=== PATIENT | male | born 1990 | race Caucasian/White ===

== ENCOUNTER 2017-03-14 16:37 | Emergency (ER) | payer BC, OTHER ==
[2017-03-14] MEDS ORDERED: DOXYcycline CAP(*) 100 MG PO ONE (18:08)
--- NOTE | 2017-03-14 18:14 | UC ---
Skin Complaint HPI - HPI Summary HPI Summary: tick found on his back this mrsbaa. It was brushed off easily. - History of Current Complaint Chief Complaint: UCSkin Time Seen by Provider: 03/14/17 18:05 Stated Complaint: TICK Hx Obtained From: Patient Onset/Duration: Gradual Onset, Resolved Skin Exposure Onset/Duration: Days Ago Timing: Constant Onset Severity: Mild Current Severity: None Location: Discrete Character: Redness, Raised Aggravating Factor(s): Nothing Alleviating Factor(s): Nothing Associated Signs & Symptoms: Positive: Negative Review of Systems Skin: Rash - small redness All Other Systems Reviewed And Are Negative: Yes PMH/Surg Hx/FS Hx/Imm Hx Previously Healthy: Yes - Family History Known Family History: Positive: Other - no family history related illness. - Social History Occupation: Employed Full-time Physical Exam Triage Information Reviewed: Yes Appearance: Well-Appearing, No Pain Distress, Well-Nourished Vital Signs Reviewed: Yes Eyes: Positive: Conjunctiva Clear ENT: Positive: Normal ENT inspection Neck: Positive: Supple, Nontender, No Lymphadenopathy Respiratory: Positive: No respiratory distress, No accessory muscle use Cardiovascular: Positive: RRR Abdomen Description: Negative: Distended, Guarding Musculoskeletal: Positive: No Edema Neurological: Positive: Alert, Muscle Tone Normal, Fatigued Skin Exam: Normal Skin: Positive: rashes Course/Dx - Diagnoses Provider Diagnoses: tick bite Discharge - Discharge Plan Condition: Good Disposition: HOME Patient Education Materials: Tick Bite (ED) Referrals: Felice Torres MD [Primary Care Provider] - If Needed Additional Instructions: return for any signs of lymes disease which is a flu like illness or a "bulls eye" rash with the next few weeks.
[2017-03-14 18:21] VITALS: BP 171/83
== END 2017-03-14 18:35 | disposition home or self-care (01) ==
LOC: UCCORT 16:37
DX: T14.8XXA Other injury of unspecified body region, initial encounter (principal); W57.XXXA Bitten or stung by nonvenomous insect and other nonvenomous arthropods, initial encounter; Y92.9 Unspecified place or not applicable
CPT/HCPCS: 99202; A9270-GY; G0463

== ENCOUNTER 2019-05-05 08:39 | Emergency (ER) | payer BC ==
[2019-05-05 08:50] VITALS: BP 177/90
--- NOTE | 2019-05-05 09:09 | UC ---
Throat Pain/Nasal Madhav HPI - HPI Summary HPI Summary: 29-year-old male who is had a sore throat for approximate 1 week. He was exposed to a friend's child last week who had diagnosed strep throat. - History of Current Complaint Chief Complaint: UCRespiratory Stated Complaint: ST Time Seen by Provider: 05/05/19 08:43 Hx Obtained From: Patient Onset/Duration: Gradual Onset Severity: Mild Pain Intensity: 3 Cough: None Associated Signs & Symptoms: Positive: Negative - Allergies/Home Medications Allergies/Adverse Reactions: Allergies Allergy/AdvReac Type Severity Reaction Status Date / Time No Known Allergies Allergy Verified 05/05/19 08:46 PMH/Surg Hx/FS Hx/Imm Hx Previously Healthy: Yes - Surgical History Surgical History: Yes Surgery Procedure, Year, and Place: [facility] - Family History Known Family History: Positive: Other - no family history related illness. - Social History Alcohol Use: Daily Alcohol Amount: 3-4 beers/DAY Substance Use Type: None Smoking Status (MU): Smoker, Current Status Unknown Type: Smokeless Tobacco Amount Used/How Often: DAILY - Immunization History Most Recent Influenza Vaccination: NOT YET 2017 Review of Systems All Other Systems Reviewed And Are Negative: Yes ENT: Positive: Sore Throat Is Patient Immunocompromised?: No Physical Exam Triage Information Reviewed: Yes Appearance: Well-Appearing, No Pain Distress, Well-Nourished Vital Signs: Initial Vital Signs Temp 99.2 F 05/05/19 08:46 Pulse 105 05/05/19 08:46 Resp 16 05/05/19 08:46 BP 177/90 05/05/19 08:46 Pulse Ox 99 05/05/19 08:46 Vital Signs Reviewed: Yes Eyes: Positive: Conjunctiva Clear ENT: Positive: Hearing grossly normal, Pharyngeal erythema, TMs normal, Tonsillar swelling, Tonsillar exudate, Uvula midline. Negative: Trismus, Muffled voice, Hoarse voice Neck: Positive: Supple, Nontender, No Lymphadenopathy Respiratory: Positive: Lungs clear, Normal breath sounds, No respiratory distress, No accessory muscle use Cardiovascular: Positive: RRR, No Murmur, Pulses Normal, Brisk Capillary Refill Abdomen Description: Positive: Nontender, No Organomegaly, Soft. Negative: CVA Tenderness (R), CVA Tenderness (L), Distended, Guarding, Splenomegaly Bowel Sounds: Positive: Present Musculoskeletal Exam: Normal Neurological Exam: Normal Psychological Exam: Normal Skin Exam: Normal Throat Pain/Nasal Course/Dx - Course Course Of Treatment: Patient is comfortable here. I am going to treated for tonsillitis with amoxicillin because of his strep exposure last week and the fact that he is symptomatic for the past week without improvement. - Differential Dx/Diagnosis Provider Diagnosis: Tonsillitis with exudate Discharge ED - Sign-Out/Discharge Documenting (check all that apply): Patient Departure All imaging exams completed and their final reports reviewed: No Studies - Discharge Plan Condition: Good Disposition: HOME Prescriptions: Amoxicillin PO (*) [Amoxicillin 875 MG (*)] 875 mg PO BID 10 Days #20 tab Patient Education Materials: Tonsillitis (ED) Referrals: Kelsey Meehan MD [Primary Care Provider] - Additional Instructions: Increase fluids, warm saltwater gargles, change toothbrush in 24 hours. Follow- up with her primary care provider if no improvement in 4 or 5 days. - Billing Disposition and Condition Condition: GOOD Disposition: Home
== END 2019-05-05 09:18 | disposition home or self-care (01) ==
LOC: UCCORT 08:39
DX: J03.90 Acute tonsillitis, unspecified (principal); F17.290 Nicotine dependence, other tobacco product, uncomplicated
CPT/HCPCS: 87651; 99212; G0463

== ENCOUNTER 2023-05-21 20:12 | Observation (INO) ==
[2023-05-21 21:17] LABS: ABS Lymphocytes 0.2 10^3/uL (1.0-4.8); ABS Monocytes 0.5 10^3/uL (0.0-1.1); ABS Neutrophils 4.9 10^3/uL (1.5-7.6); Eosinophil % 0.1 %; Hematocrit 44.1 % (38-53); Hemoglobin 15.5 g/dL (13.2-16.3); Lymphocyte % 3.9 %; Mean Corpuscular Hemoglobin 32.7 pg (27-33); Mean Corpuscular Hgb Conc 35.2 g/dL (31-36); Mean Corpuscular Volume 92.9 fL (80-97); Mean Platelet Volume 9.3 fL (7.5-11.2); Platelet Count 122 10^3/uL (150-450); Red Blood Count 4.75 10^6/uL (4.06-5.63); Red Cell Distribution Width 14.5 % (12-17); White Blood Count 5.6 10^3/uL (3.6-10.2)
[2023-05-21] MEDS ORDERED: levETIRAcetam IV 1,500 MG in NS 0.9% 100 ml BAG 100 ML IVPB ONE (21:17)
[2023-05-21] MEDS ORDERED: LORazepam 2 mg VIAL 1 ml IV PUSH ONE (21:17)
[2023-05-21] MEDS ORDERED: Lorazepam PYXIS KEY PRN (21:17)
[2023-05-21 21:29] LABS: INR 0.92 (0.83-1.13)
[2023-05-21] MEDS ORDERED: Thiamine 100 MG/ML 2 ml VIAL 100 MG, Folic Acid IV 1 MG, Multiple Vitamin IV ADULT 10 M... IV ONE (21:33)
[2023-05-21] MEDS ORDERED: Ondansetron 4 mg VIAL 2 MG/ML 2 ml VIAL IV ONE (21:33)
[2023-05-21 21:37] LABS: ALT 120 U/L (7-52); AST 239 U/L (13-39); Albumin 4.4 g/dL (3.2-5.2); Albumin/Globulin Ratio 1.5 (1-3); Alkaline Phosphatase 164 U/L (35-149); Anion Gap 14 mmol/L (2-16); Blood Urea Nitrogen 10 mg/dL (6-24); CO2 Carbon Dioxide 26 mmol/L (22-32); Calcium 9.5 mg/dL (8.6-10.3); Chloride 87 mmol/L (101-111); Creatinine, Serum 0.88 mg/dL (0.67-1.17); Globulin 2.9 g/dL (2-4); Glucose 170 mg/dL (70-100); Magnesium 2.2 mg/dL (1.9-2.7); Potassium 2.9 mmol/L (3.5-5.0); Sodium 127 mmol/L (135-145); Total Protein 7.3 g/dL (6.4-8.9); eGFR CKD-EPI 117.2 (>60)
[2023-05-21 21:52] LABS: Alcohol, S < 13 mg/dL (<13)
[2023-05-21] MEDS ORDERED: Potassium EFFERVES 25 meq TAB PO ONE (22:32)
[2023-05-21] MEDS ORDERED: Magnesium Sulfate 2 gm BAG 2 GM/50 ML BAG IVPB ONE (22:32)
[2023-05-21] MEDS ORDERED: Ondansetron 4 mg VIAL 2 MG/ML 2 ml VIAL IV PRN (23:12)
[2023-05-21 23:14] LABS: Amylase 67 U/L (29-103); Lipase 48 U/L (11.0-82.0)
[2023-05-22] MEDS: KCL 20 MEQ/100 ML IVPREMIX 20 MEQ/100 ML BAG IV SCH ×2 (00:33→04:00)
[2023-05-22 01:27] LABS: Urine Benzodiazepine Screen None Detected (None Detect); Urine Cannabinoids Screen None Detected (None Detect); Urine Opiates Screen None Detected (None Detect)
[2023-05-22 01:31] LABS: Urine Appearance Clear; Urine Bacteria Absent (Absent); Urine Bilirubin Negative (Negative); Urine Blood 2+ (Negative); Urine Color Yellow; Urine Glucose Negative (Negative); Urine Ketones Trace (Negative); Urine Nitrite Negative (Negative); Urine Protein 3+(>=500 mg/dL) (Negative); Urine Red Blood Cell Trace(0-2/hpf) (Absent); Urine Specific Gravity 1.009 (1.002-1.030); Urine Squamous Epithelial Cell Present (Absent); Urine Urobilinogen Positive (Negative); Urine White Blood Cell Trace(0-5/hpf) (Absent)
[2023-05-22] MEDS: LORazepam 2 mg VIAL 1 ml IV PUSH SCH ×2 (01:53→03:59)
[2023-05-22 03:17] LABS: INR 0.96 (0.83-1.13)
[2023-05-22 05:33] LABS: ABS Lymphocytes 0.4 10^3/uL (1.0-4.8); ABS Neutrophils 4.5 10^3/uL (1.5-7.6); Hematocrit 40.4 % (38-53); Hemoglobin 14.1 g/dL (13.2-16.3); Lymphocyte % 6.4 %; Mean Corpuscular Hemoglobin 32.5 pg (27-33); Mean Corpuscular Hgb Conc 34.9 g/dL (31-36); Mean Platelet Volume 9.8 fL (7.5-11.2); Platelet Count 108 10^3/uL (150-450); Red Blood Count 4.34 10^6/uL (4.06-5.63); Red Cell Distribution Width 14.3 % (12-17); White Blood Count 5.9 10^3/uL (3.6-10.2)
[2023-05-22 05:50] LABS: Albumin 3.9 g/dL (3.2-5.2); Albumin/Globulin Ratio 1.6 (1-3); Calcium 8.7 mg/dL (8.6-10.3); Creatinine, Serum 0.81 mg/dL (0.67-1.17); Globulin 2.4 g/dL (2-4); HDL Cholesterol 106.7 mg/dL; Potassium 3.3 mmol/L (3.5-5.0); Total Bilirubin 1.9 mg/dL (0.2-1.0); Total Protein 6.3 g/dL (6.4-8.9); eGFR CKD-EPI 120.1 (>60)
[2023-05-22] MEDS ORDERED: Lorazepam PYXIS KEY PRN (07:24)
[2023-05-22] MEDS ORDERED: Potassium EFFERVES 25 meq TAB PO ONE (07:36)
[2023-05-22] MEDS: Multivitamins/Minerals TAB PO SCH (08:09)
[2023-05-22 10:35] LABS: Hepatitis B Surface Antigen Nonreactive (Nonreactive)
[2023-05-22 10:39] LABS: Hepatitis A Ab IgM Negative (Negative)
[2023-05-22 10:40] LABS: Hepatitis B Core IgM Nonreactive (Nonreactive)
[2023-05-22 10:51] LABS: Hepatitis C Antibody Negative (Negative)
[2023-05-22] MEDS ORDERED: Thiamine IV 100 MG/ML VIAL (only for Bannana Bags !) IVPB SCH (13:00)
[2023-05-22] MEDS: Thiamine IV 500 MG in NS 0.9% 250 ML (Wernicke-Korsakoff) IV SCH ×2 (14:20→20:16)
[2023-05-22] MEDS: Lactulose 30 ml UDC PO SCH ×3 (14:25→20:10)
[2023-05-22 14:59] LABS: TSH Ultra Thyroid Stim Horm 2.24 mcIU/mL (0.34-5.60)
[2023-05-23] MEDS: Thiamine IV 500 MG in NS 0.9% 250 ML (Wernicke-Korsakoff) IV SCH ×2 (05:15→14:42)
[2023-05-23 07:13] LABS: Albumin 3.8 g/dL (3.2-5.2); Albumin/Globulin Ratio 1.5 (1-3); Calcium 8.6 mg/dL (8.6-10.3); Creatinine, Serum 0.7 mg/dL (0.67-1.17); Globulin 2.5 g/dL (2-4); Potassium 3.5 mmol/L (3.5-5.0); Total Protein 6.3 g/dL (6.4-8.9); eGFR CKD-EPI 125.6 (>60)
[2023-05-23] MEDS: Multivitamins/Minerals TAB PO SCH (11:18)
[2023-05-23] MEDS: Lactulose 30 ml UDC PO SCH ×2 (11:18→12:37)
[2023-05-23 14:44] VITALS: BP 134/89
[2023-05-24] MEDS ORDERED: Thiamine IV 100 MG/ML VIAL (only for Bannana Bags !) IVPB SCH (13:00)
[2023-05-24] MEDS ORDERED: Thiamine IV 250 MG in NS 0.9% 100 ML Q24H IV SCH (13:00)
== END 2023-05-23 16:33 | disposition home or self-care (01) ==
LOC: ED 20:12 → EDHOLD 20:12 → MED 23:12 → SUATTDRO 23:12 → MED 05-22 01:15
PROVIDERS: ADMIT Internal Medicine; ATTEND Internal Medicine

== ENCOUNTER 2024-02-26 19:04 | Inpatient (IN) ==
[2024-02-26 20:38] LABS: Hematocrit 20.2 % (38-53); Hemoglobin 7.3 g/dL (13.2-16.3); Mean Corpuscular Hemoglobin 34.3 pg (27-33); Mean Corpuscular Hgb Conc 36.1 g/dL (31-36); Mean Corpuscular Volume 95.1 fL (80-97); Mean Platelet Volume 8.3 fL (7.5-11.2); Platelet Count 189 10^3/uL (150-450); Red Blood Count 2.13 10^6/uL (4.06-5.63); Red Cell Distribution Width 18.2 % (12-17); White Blood Count 13.8 10^3/uL (3.6-10.2)
[2024-02-26 20:45] LABS: INR 2.16 (0.85-1.14)
[2024-02-26 21:06] LABS: Blood Urea Nitrogen 21 mg/dL (6-24); CO2 Carbon Dioxide 23 mmol/L (22-32); Chloride 60 mmol/L (101-111); Creatinine, Serum 2.19 mg/dL (0.67-1.17); Glucose 108 mg/dL (70-100); Potassium 2.9 mmol/L (3.5-5.0)
[2024-02-26 21:10] LABS: ALT 30 U/L (7-52); AST 132 U/L (13-39); Albumin/Globulin Ratio 1.4 (1-3); Alcohol, S < 13 mg/dL (<13); Alkaline Phosphatase 410 U/L (35-149); Anion Gap 15 mmol/L (2-16); Anisocytosis 1+; Globulin 2.2 g/dL (2-4); Polychromasia 1+; Sodium 98 mmol/L (135-145); Total Protein 5.2 g/dL (6.4-8.9)
[2024-02-26 21:11] LABS: ABS Nucleated RBC 0.01 10^3/ul
[2024-02-26 21:12] LABS: ABS Lymphocytes 0.4 10^3/ul (1.0-4.8); ABS Neutrophils 13.1 10^3/ul (1.5-7.6)
[2024-02-26 21:13] LABS: ABS Monocytes 0.3 10^3/ul (0.0-1.1)
[2024-02-26 21:15] LABS: Direct Bilirubin 17.8 mg/dL (0.03-0.18); Indirect Bilirubin 12.9 mg/dL (0.3-1.0); Total Bilirubin 30.7 mg/dL (0.2-1.0)
[2024-02-26 22:10] LABS: Potassium, Whole Blood 2.8 mmol/L (3.4-4.5)
[2024-02-26 22:18] LABS: Sodium, Whole Blood <107 mmol/L (136-145)
[2024-02-26 22:32] LABS: Chloride, Whole Blood 64 mmol/L (98-107)
[2024-02-26] MEDS: KCL 20 MEQ/100 ML IVPREMIX 20 MEQ/100 ML BAG IV SCH (22:56)
[2024-02-26] MEDS: NS 0.9% 1000 ml BAG 1,000 ML IV SCH (23:00)
[2024-02-26] MEDS: Sodium Chloride 3% HYPERTONIC 120 ML IV ONE (23:42)
[2024-02-27] MEDS ORDERED: cefTRIAXone 2 GM ADDV.VIAL 2 GM in NS 0.9% 100 ml BAG 100 ML IV ONE (01:17)
[2024-02-27] MEDS ORDERED: D5W IV ONE (02:00)
[2024-02-27] MEDS ORDERED: ACETYLCYSTEINE IV ONE (02:00)
[2024-02-27] MEDS: Azithromycin 500 mg/250 ml NS 500 MG/250 ML BAG IVPB ONE (02:24)
[2024-02-27 03:13] LABS: Potassium, Whole Blood 3.1 mmol/L (3.4-4.5); Sodium, Whole Blood <107 mmol/L (136-145)
[2024-02-27] MEDS: cefTRIAXone 2 gm/50 mL D5W 2 GM/50 ML BAG IV ONE (03:29)
[2024-02-27 03:34] LABS: Chloride, Whole Blood 65 mmol/L (98-107)
[2024-02-27] MEDS: Thiamine 100 MG/ML 2 ml VIAL 100 MG, Folic Acid IV 1 MG, Multiple Vitamin IV ADULT 10 M... IV ONE (04:02)
[2024-02-27 06:09] LABS: Hematocrit 17.7 % (38-53); Hemoglobin 6.6 g/dL (13.2-16.3)
[2024-02-27] MEDS ORDERED: diazePAM INJ CARPUJECT 5 MG/ML SYRINGE IV SCH (08:00)
[2024-02-27] MEDS: Octreotide Acetate 500 MCG in NS 0.9% 100 ml BAG 100 ML IV SCH (08:50)
[2024-02-27] MEDS: Sodium Chloride 3% HYPERTONIC 120 ML IV ONE (09:03)
[2024-02-27 10:03] LABS: Calcium 6.2 mg/dL (8.6-10.3); Creatinine, Serum 2.56 mg/dL (0.67-1.17); Potassium 3.5 mmol/L (3.5-5.0); eGFR CKD-EPI 33.2 (>60)
[2024-02-27 10:23] LABS: Hematocrit 18.4 % (38-53); Hemoglobin 6.7 g/dL (13.2-16.3)
[2024-02-27 13:18] LABS: Hematocrit 20.1 % (38-53); Hemoglobin 7.4 g/dL (13.2-16.3)
[2024-02-27 13:54] LABS: Calcium 6.2 mg/dL (8.6-10.3); Creatinine, Serum 2.48 mg/dL (0.67-1.17); Potassium 3.3 mmol/L (3.5-5.0); eGFR CKD-EPI 34.5 (>60)
[2024-02-27 17:09] LABS: Urine Benzodiazepine Screen None Detected (None Detect); Urine Cannabinoids Screen None Detected (None Detect); Urine Opiates Screen None Detected (None Detect)
[2024-02-27 17:25] LABS: Calcium 6.5 mg/dL (8.6-10.3); Creatinine, Serum 2.65 mg/dL (0.67-1.17); Potassium 3.3 mmol/L (3.5-5.0); eGFR CKD-EPI 31.8 (>60)
[2024-02-27] MEDS: Pantoprazole VIAL 40 MG VIAL IV ONE (20:11)
[2024-02-27 20:53] LABS: Acetaminophen < 15 mcg/mL
[2024-02-27 21:24] LABS: Hepatitis B Surface Antigen Nonreactive (Nonreactive)
[2024-02-27 21:29] LABS: Hepatitis A Ab IgM Negative (Negative)
[2024-02-27 21:30] LABS: Hepatitis B Core IgM Nonreactive (Nonreactive)
[2024-02-27 21:41] LABS: Hepatitis C Antibody Negative (Negative)
[2024-02-27] MEDS: Lactulose 30 ml UDC PO SCH (22:49)
[2024-02-27] MEDS: ACETYLCYSTEINE IV ONE (23:41)
[2024-02-27] MEDS: D5W IV ONE (23:41)
[2024-02-28 00:32] LABS: INR 2.03 (0.85-1.14)
[2024-02-28 00:36] LABS: Direct Bilirubin 20.7 mg/dL (0.03-0.18); Total Bilirubin 33.4 mg/dL (0.2-1.0)
[2024-02-28 00:38] LABS: Calcium 6.5 mg/dL (8.6-10.3); Creatinine, Serum 2.86 mg/dL (0.67-1.17); Magnesium 1.8 mg/dL (1.9-2.7); Phosphorus 1.5 mg/dL (2.5-5.0); Potassium 3.3 mmol/L (3.5-5.0); eGFR CKD-EPI 29.1 (>60)
[2024-02-28 00:39] LABS: Albumin 2.8 g/dL (3.2-5.2); Albumin/Globulin Ratio 1.6 (1-3); Globulin 1.8 g/dL (2-4); Total Protein 4.6 g/dL (6.4-8.9)
[2024-02-28] MEDS: ACETYLCYSTEINE IV ONE ×2 (00:46→05:19)
[2024-02-28] MEDS: D5W IV ONE ×2 (00:46→05:19)
[2024-02-28 01:15] LABS: Hematocrit 20.9 % (38-53); Hemoglobin 7.7 g/dL (13.2-16.3); Mean Corpuscular Hemoglobin 34.4 pg (27-33); Mean Corpuscular Hgb Conc 36.6 g/dL (31-36); Mean Corpuscular Volume 93.9 fL (80-97); Mean Platelet Volume 8.2 fL (7.5-11.2); Platelet Count 129 10^3/uL (150-450); Red Blood Count 2.23 10^6/uL (4.06-5.63); Red Cell Distribution Width 17.4 % (12-17); White Blood Count 9.6 10^3/uL (3.6-10.2)
[2024-02-28 01:26] LABS: ABS Nucleated RBC 0.01 10^3/ul; Anisocytosis 2+; Target Cells 1+
[2024-02-28 01:27] LABS: Nucleated Red Blood Cells % 0.1 %/100WBC (0.0-0.8)
[2024-02-28 01:29] LABS: ABS Lymphocytes 0.3 10^3/ul (1.0-4.8); ABS Monocytes 0.6 10^3/ul (0.0-1.1); ABS Neutrophils 8.7 10^3/ul (1.5-7.6)
[2024-02-28] MEDS: Potassium Phosphate IV 15 MMOL in NS 0.9% 250 ml 250 ML IVPB ONE (02:19)
[2024-02-28] MEDS ORDERED: Zosyn per Pharmacy NOTE FOLLOW UP SCH (03:00)
[2024-02-28] MEDS: Magnesium Sulfate 2 gm BAG 2 GM/50 ML BAG IVPB ONE (03:05)
[2024-02-28] MEDS: Piperacillin/Tazobac 3.375 BAG 3.375 GM/100 ML BAG IV ONE (04:01)
[2024-02-28 04:41] LABS: HDL Cholesterol 6.9 mg/dL
[2024-02-28] MEDS: Thiamine 100 MG/ML 2 ml VIAL (200 mg) IM ONE (05:16)
[2024-02-28 06:09] LABS: INR 2.42 (0.85-1.14)
[2024-02-28 06:44] LABS: Albumin 2.6 g/dL (3.2-5.2); Albumin/Globulin Ratio 1.3 (1-3); Calcium 6.5 mg/dL (8.6-10.3); Magnesium 2.3 mg/dL (1.9-2.7); Potassium 3.2 mmol/L (3.5-5.0); Total Bilirubin 29.6 mg/dL (0.2-1.0); Total Protein 4.6 g/dL (6.4-8.9); eGFR CKD-EPI 27.4 (>60)
[2024-02-28 07:08] LABS: LDH 184 U/L (140-271)
[2024-02-28 07:34] LABS: Folate 5.81 ng/mL (5.90-24.80)
[2024-02-28 07:35] LABS: Vitamin B12 > 1450 pg/mL (180-914)
[2024-02-28 08:13] LABS: Hematocrit 19.7 % (38-53); Hemoglobin 6.6 g/dL (13.2-16.3); Mean Corpuscular Hemoglobin 23.1 pg (27-33); Mean Corpuscular Hgb Conc 33.5 g/dL (31-36); Mean Corpuscular Volume 94.9 fL (80-97); Mean Platelet Volume 8.2 fL (7.5-11.2); Platelet Count 111 10^3/uL (150-450); Red Blood Count 2.08 10^6/uL (4.06-5.63); Red Cell Distribution Width 17.8 % (12-17)
[2024-02-28 08:15] LABS: Osmolality Serum 234 mOsm/kg (275-295)
[2024-02-28] MEDS ORDERED: Sulfur Hexaflouride MICROSPHR 25 MG VIAL IV PRN (08:54)
[2024-02-28] MEDS: KCL 20 MEQ/100 ML IVPREMIX 20 MEQ/100 ML BAG IV SCH (09:37)
[2024-02-28] MEDS: Multivitamins/Minerals TAB PO SCH (09:40)
[2024-02-28] MEDS: Albumin Human 5% 12.5 GM/250 ML BTL IV ONE (11:19)
[2024-02-28] MEDS: ZOSYN 3.375 GM Q8H per EXTENDED INFUSION IV SCH ×2 (11:41→17:00)
[2024-02-28] MEDS: Pantoprazole 80 mg in NS BAG 80 MG/250 ML BAG IV SCH (13:44)
[2024-02-28 14:15] LABS: Hematocrit 21.2 % (38-53); Hemoglobin 7.7 g/dL (13.2-16.3)
[2024-02-28 15:24] LABS: Albumin 2.7 g/dL (3.2-5.2); Albumin/Globulin Ratio 1.5 (1-3); Calcium 6.5 mg/dL (8.6-10.3); Creatinine, Serum 3.22 mg/dL (0.67-1.17); Globulin 1.8 g/dL (2-4); Magnesium 2.3 mg/dL (1.9-2.7); Potassium 3.7 mmol/L (3.5-5.0); Total Protein 4.5 g/dL (6.4-8.9); eGFR CKD-EPI 25.2 (>60)
[2024-02-28 15:43] LABS: Total Bilirubin 33.8 mg/dL (0.2-1.0)
[2024-02-28] MEDS: Furosemide 20 mg/2 ml IV VIAL IV ONE (18:03)
[2024-02-28 19:37] LABS: Phosphorus 2.3 mg/dL (2.5-5.0)
[2024-02-29] MEDS: Norepinephrine 4 MG/250mL D5W 4,000 MCG/250 ML BAG IV SCH (01:20)
[2024-02-29] MEDS: Norepinephrine 4 MG/250mL D5W 4,000 MCG/250 ML BAG IV ONE (01:47)
[2024-02-29 04:57] LABS: Ur Squamous Epithelial No Cx Present /HPF (Absent); Urine Bacteria No Culture Absent /HPF (Absent); Urine Bilirubin No Culture 4+ (Negative); Urine Blood No Culture 3+ (Negative); Urine Color No Culture Dark-Yellow; Urine Glucose No Culture Trace (Negative); Urine Ketones No Culture 1+ (Negative); Urine Leukocytes No Culture 25 (Trace) Leu/uL (Negative); Urine Nitrite No Culture Negative (Negative); Urine Protein No Culture Trace (Negative); Urine Red Blood Cell No Cult 3+(>10/hpf) /HPF (0-Trace); Urine Specific Gravity No Cx 1.019 (1.002-1.030); Urine Urobilinogen No Cx Negative (Negative); Urine White Blood Cell No Cult Trace(0-5/hpf) /HPF (0-Trace)
[2024-02-29 05:10] LABS: INR 2.17 (0.85-1.14)
[2024-02-29 05:47] LABS: Albumin 2.7 g/dL (3.2-5.2); Albumin/Globulin Ratio 1.6 (1-3); Calcium 6.7 mg/dL (8.6-10.3); Creatinine, Serum 3.85 mg/dL (0.67-1.17); Globulin 1.7 g/dL (2-4); Phosphorus 2.3 mg/dL (2.5-5.0); Potassium 3.2 mmol/L (3.5-5.0); Total Bilirubin 34.9 mg/dL (0.2-1.0); Total Protein 4.4 g/dL (6.4-8.9); eGFR CKD-EPI 20.3 (>60)
[2024-02-29 06:04] LABS: Hematocrit 21.2 % (38-53); Hemoglobin 7.5 g/dL (13.2-16.3); Mean Corpuscular Hemoglobin 33.4 pg (27-33); Mean Corpuscular Hgb Conc 35.4 g/dL (31-36); Mean Corpuscular Volume 94.3 fL (80-97); Red Blood Count 2.24 10^6/uL (4.06-5.63); Red Cell Distribution Width 17.6 % (12-17); White Blood Count 11.3 10^3/uL (3.6-10.2)
[2024-02-29] MEDS: KCL 20 MEQ/100 ML IVPREMIX 20 MEQ/100 ML BAG IV ONE (06:10)
[2024-02-29 06:18] LABS: Magnesium 2.2 mg/dL (1.9-2.7)
[2024-02-29 07:18] LABS: Mean Platelet Volume 8.3 fL (7.5-11.2); Platelet Count 126 10^3/uL (150-450)
[2024-02-29 07:19] LABS: ABS Nucleated RBC 0.02 10^3/ul; Anisocytosis 1+; Nucleated Red Blood Cells % 0.1 %/100WBC (0.0-0.8); Target Cells 2+
[2024-02-29 07:21] LABS: ABS Eosinophils 0.1 10^3/ul (0.0-0.5); ABS Lymphocytes 0.2 10^3/ul (1.0-4.8); ABS Monocytes 0.5 10^3/ul (0.0-1.1); ABS Neutrophils 10.5 10^3/ul (1.5-7.6)
[2024-02-29] MEDS: Potassium Phosphate IV 15 MMOL in NS 0.9% 250 ml 250 ML IVPB ONE (08:04)
[2024-02-29] MEDS: Furosemide 100 mg/10 ml IV VIAL IV ONE (09:20)
[2024-02-29] MEDS ORDERED: Norepinephrine 4 MG/250mL NS 4,000 MCG/250 ML BAG IV SCH (10:00)
[2024-02-29] MEDS: SODIUM CHLORIDE 3% IV ONE (11:12)
[2024-02-29] MEDS: HYPERTONIC IV ONE (11:12)
[2024-02-29 13:11] VITALS: BP 100/48
[2024-02-29] MEDS ORDERED: Pantoprazole VIAL 40 MG VIAL IV SCH (21:00)
== END 2024-02-29 12:10 | disposition short-term general hospital (02) | DRG 279 ==
LOC: ED 19:04 → EDHOLD 19:04 → OBSVTOIN 02-27 20:28 → ICU 02-27 21:01
PROVIDERS: ADMIT Internal Medicine Critical Care Medicine; ATTEND Internal Medicine Critical Care Medicine